=== PATIENT | male | born 1950 | race Caucasian/White ===

== ENCOUNTER 2025-01-05 14:10 | Day surgery (SDC) | payer MEDICARE, OTHER ==
[2024-12-29 14:48] LABS: MEAN PLATELET VOLUME 7.5 FL (7.4-10.4); PRE OP HEMATOCRIT 41.4 % (42.0-52.0); PRE OP HEMOGLOBIN 14.1 g/dL (14.0-17.9); PRE OP PLATELET COUNT 277 X10'3 (140-440); PRE OP WHITE BLOOD COUNT 6.0 10'3 (4.8-10.8); RED CELL DISTRIBUTION WIDTH 14.5 % (11.5-14.5)
[2024-12-29 15:07] LABS: CREATININE 1.07 MG/DL (0.60-1.10); PRE OP ALT 35 U/L (30-65); PRE OP ANION GAP 8 (8-16); PRE OP AST 27 U/L (10-37); PRE OP BILIRUB, TOTAL 0.6 MG/DL (0.0-1.0); PRE OP GLUCOSE 97 MG/DL (70-104); PRE OP POTASSIUM 4.0 MMOL/L (3.4-5.1); PRE OP SODIUM 142 MMOL/L (135-145); TOTAL CARBON DIOXIDE 29.5 MMOL/L (24-32); eGFR 68 ML/MIN
[2025-01-05] VITALS (9 sets, daily range): BP systolic 124–139; BP diastolic 74–90; PULSE 57–72; RESP 14–26; TEMP 98.5; O2SAT 94–100
[~2025-01-05] VITALS: Ht 175.3 cm; Wt 79.3 kg
[2025-01-05] MEDS: clindamycin-Cleocin 900mg/D5W 50 ML IV ONE (05:30)
[~2025-01-05 14:10] MED LIST: BUPIVACAINE liposomal/PF 13.3 MG/ML 10mL vial IM ONE; BUPIVAcaine 2.5mg/ml inj 50ml vial (contains preservative) ONE; BUPIVAcaine/PF 2.5mg/ml (0.25%) 10ml vial ONE; LIDOcaine 1% 30ml preserv. free vial ONE; NO HOME MEDS
[2025-01-05] MEDS: ringers solution, lacted 1,000 ML IV SCH (14:55)
[2025-01-05] MEDS: NORMAL SALINE IV ONE (14:57)
[2025-01-05] MEDS: GENTAMICIN IV ONE (14:57)
[2025-01-05] MEDS ORDERED: ringers solution, lacted 1,000 ML IV SCH ×2 (15:25→16:35)
[2025-01-05] MEDS ORDERED: enalaprilat 1.25mg/ml 2ml vial IV PRN (15:25)
[2025-01-05] MEDS ORDERED: morphine 4 MG/ML inj SYRINge IV PRN ×2 (15:25→16:35)
[2025-01-05] MEDS ORDERED: HYDROmorphone/PF 0.2 MG/ML SYRINGE IV PRN ×4 (15:25→16:35)
[2025-01-05] MEDS ORDERED: ondansetron/PF 4mg/2ml inj IV PRN ×2 (15:25→16:35)
[2025-01-05] MEDS ORDERED: labetalol 20mg/4ml (5mg/ml) syringe IV PRN ×2 (15:25→16:35)
[2025-01-05] MEDS ORDERED: fentaNYL/PF 50MCG/1 ML 2ML syringe IV PRN ×2 (15:25)
[2025-01-05] MEDS ORDERED: hydrALAZINE 20mg/ml inj. IV PRN (16:35)
[2025-01-05] MEDS ORDERED: acetaminophen 1,000mg/100ml IV 100 ML IV PRN (16:35)
[2025-01-05] MEDS ORDERED: propofol inj 20 ML IV ONE (16:59)
[2025-01-05] MEDS ORDERED: fentaNYL/PF 50MCG/1 ML 2ML syringe ONE (16:59)
[2025-01-05] MEDS ORDERED: midazolam 1 mg/ML 2ml injection ONE (16:59)
--- NOTE | 2025-01-05 17:08 | HISTORY AND PHYSICAL ---
History & Physical Providers to CC CC: CRIS JUAN MD ~ History of Present Illness Reason for Admit\Complaint: Umbilical hernia History of Present Illness Patient was seen in my office in August of this year and found to have a relatively asymptomatic 1 cm umbilical hernia This has slightly increased in size and is mildly symptomatic He is here for elective repair He is scheduled for open umbilical hernia repair with mesh He denies any change in his past medical history since he was seen in my office this past summer (please see that previous history and physical exam for all pertinent details) Allergies: Coded Allergies: Penicillins (Verified Allergy, Unknown, ??? CHILDHOOD, 01/04/25) Sulfa (Sulfonamide Antibiotics) (Verified Allergy, Unknown, ??? CHILDHOOD, 01/04/25) Home Medications Home Medications Active Reported No Home Medications (Home Med List) Each Exam Vitals: Vital Signs Date Time Temp Pulse Resp B/P (MAP) Pulse Ox O2 Delivery O2 Flow Rate FiO2 01/05/25 14:45 16 96 Room Air 01/05/25 14:45 63 General: 74-year-old male in no acute distress Chest: Lungs clear to auscultation bilaterally Cardiovascular: Regular rate and rhythm without murmurs Abdomen: Soft and nondistended Reducible umbilical hernia with no overlying skin changes Problems: (1) Umbilical hernia Assessment & Plan: The risks, benefits, and alternatives to an umbilical hernia repair with mesh were discussed with the patient. Risks include, but are not limited to, bleeding, infection, injury to intra-abdominal structures, hernia recurrence and chronic postoperative pain. Patient verbalized understanding and wishes to proceed with surgery. We will do so today as scheduled CRIS JUAN MD Jan 05, 2025 17:08
[2025-01-05] MEDS: LIDOcaine 1% 30ml preserv. free vial IJ ONE (17:19)
[2025-01-05] MEDS: BUPIVAcaine/PF 2.5 mg/ml (0.25%) 30ml vial IJ ONE (17:19)
[2025-01-05] MEDS ORDERED: dexamethasone sod phosphate 4mg/ml inj. ONE (17:47)
[2025-01-05] MEDS ORDERED: ondansetron/PF 4mg/2ml inj ONE (17:47)
[2025-01-05] MEDS ORDERED: HYDROcodone/acetaminophen 5mg/325mg tablet PO PRN (18:25)
--- NOTE | 2025-01-05 18:25 | OPERATIVE REPORT ---
Operative Report Providers to CC: SALINA JUAN ~ Date of Procedure: Jan 05, 2025 Pre-Operative Diagnosis: Umbilical hernia Post-Operative Diagnosis 1 cm umbilical hernia Procedure Performed 1 cm umbilical hernia repair with mesh Surgeon: Sky Juan MD FACS [place] None Anesthesiologist: Marco Blunt Type of Anesthesia: General Findings: 1 cm fascial defect at the level of the umbilicus Wound class I Complications None Prosthetics\Implants used: 1.7 in diameter coated polypropylene mesh Estimated Blood Loss: Minimal Specimen Removed: Hernia sac excised and discarded Description of Procedure: Patient was brought to the operating room and identified by the nursing staff and the attending physician. Patient was placed supine and general anesthesia was induced. Patient's abdomen was prepped and draped in the standard sterile fashion. Preoperative antibiotics were given. Supraumbilical midline incision was made and deepened down to the base of the umbilicus. The umbilical stalk was released, revealing a 1 cm fascial defect. Hernia sac was mobilized out of the umbilical stalk and reduced. Preperitoneal fat where the contents. Excess hernia sac along the fascial edge was excised and discarded. Space was created to accommodate a 1.7 in diameter coated polypropylene mesh. This was passed through the fascial defect and secured circumferentially with interrupted 0 Ethibond sutures. The knots were buried beneath the fascia. Fascia was closed over the mesh and the umbilical stalk was reapproximated. The incision was closed in layers with absorbable sutures. Sterile dressing was applied. Patient was awakened and taken to the postanesthesia care unit in stable condition. Counts repoted as correct: Yes SKY JUAN MD Jan 05, 2025 18:25
== END 2025-01-05 19:25 | disposition home or self-care (01) ==
LOC: PAS 14:10
PROVIDERS: ATTEND Surgery
DX: K42.9 Umbilical hernia without obstruction or gangrene (principal); R73.09 Other abnormal glucose; Z98.890 Other specified postprocedural states; Z88.0 Allergy status to penicillin; Z88.2 Allergy status to sulfonamides
CPT/HCPCS: 36415; 49591; 80053; 82948; 85025; A4215; A4618; C1781; J1100; J1580; J2003; J2250; J2405; J2704; J3010; J3490; J7030; J7120; Z7506; Z7512; Z7610; J0666